=== PATIENT | male | born 1985 | race Caucasian/White ===

== ENCOUNTER 2016-06-28 00:51 | Emergency (ER) | payer MEDICARE ==
[~2016-06-28] VITALS: Ht 180.3 cm; Wt 86.4 kg
[~2016-06-28 00:51] MED LIST: ATARAX50 MG PO; ATIVAN 1MG T1 MG/TAB PO; NO HOME MEDICATIONS; ZITHROMAX 250M250 MG PO; ZYPREXA 5MG5 MG PO
[2016-06-28 00:57] VITALS: TEMP 97.5
[2016-06-28] MEDS ORDERED: ULTRAM 50MG TAB50 MG PO (01:34)
[2016-06-28 02:14] VITALS: BP 158/103; PULSE 88
== END 2016-06-28 02:18 | disposition home or self-care (01) ==
LOC: COL.ER 00:51
DX: M67.432 Ganglion, left wrist (principal)

== ENCOUNTER 2016-07-16 20:58 | Emergency (ER) | payer MEDICARE ==
[~2016-07-16] VITALS: Ht 180.3 cm; Wt 86.4 kg
[~2016-07-16 20:58] MED LIST changes: +ULTRAM 50MG TAB50 MG PO
[2016-07-16 21:00] VITALS: BP 160/100; TEMP 97.8
[2016-07-16] MEDS ORDERED: PREDNISONE20 MG PO (21:15)
[2016-07-16] MEDS ORDERED: ULTRAM 50MG TAB50 MG PO (21:19)
[2016-07-16 21:28] VITALS: PULSE 99
== END 2016-07-16 21:29 | disposition home or self-care (01) ==
LOC: COL.ER 20:58
DX: J45.901 Unspecified asthma with (acute) exacerbation (principal); M67.432 Ganglion, left wrist; Z87.891 Personal history of nicotine dependence
CPT/HCPCS: J7512

== ENCOUNTER 2016-11-02 21:55 | Emergency (ER) | payer MEDICARE, MEDICAID ==
[~2016-11-02] VITALS: Ht 180.3 cm; Wt 81.8 kg
[~2016-11-02 21:55] MED LIST changes: +PREDNISONE20 MG PO
[2016-11-02 21:57] VITALS: TEMP 98
[2016-11-02 23:34] LABS: BASO # 0.1 (0.0-0.2); BASO % 0.8 % (0.0-2.0); EOS # 0.1 (0.0-0.7); EOS % 0.5 % (0-4.0); GRAN # 11.1 (1.4-6.5); GRAN % 77.7 % (42.2-75.2); HEMATOCRIT 48.1 % (42.0-52.0); HEMOGLOBIN 16.6 g/dl (13.5-18.0); LYMPH # 2.1 (1.2-3.4); LYMPH % 15.1 % (20.0-51.0); MEAN CELL VOLUME 93 fl (80.0-100.0); MEAN CORPUSCULAR HEMOGLOBIN 32 pg (27.0-31.0); MEAN CORPUSCULAR HGB CONC 35 g/dl (33.0-37.0); MEAN PLATELET VOLUME 9.1 fl (7.4-10.4); MONO # 0.8 (0.1-0.6); MONO % 5.3 % (1.7-9.3); PLATELET COUNT 384 K/mm3 (130-400); RED BLOOD COUNT 5.15 M/mm3 (4.20-5.60); REDCELL DISTRIBUTION WIDTH-CV 12.6 % (11.5-14.5); WHITE BLOOD COUNT 14.2 K/mm3 (4.8-10.8)
[2016-11-02 23:46] LABS: ADJUSTED CALCIUM 8.2 mg/dL (8.4-10.2); ALANINE AMINOTRANSFERASE 32 U/L (21-72); ALKALINE PHOSPHATASE 83 U/L (50-136); ANION GAP 21 mmol/L (7-16); BILIRUBIN,TOTAL 0.8 mg/dL (0.0-1.0); BLOOD UREA NITROGEN 12 mg/dL (9-20); CHLORIDE 111 mmol/L (98-107); CREATININE, serum 0.94 mg/dL (0.66-1.25); GLUCOSE 128 mg/dL (74-106); POTASSIUM 3.7 mmol/L (3.4-5.0); SODIUM 145 mmol/L (137-145); TOTAL PROTEIN 7.6 gm/dL (6.4-8.2)
[2016-11-02 23:48] LABS: ACETAMINOPHEN < 10 ug/mL (10-30); SALICYLATE < 1.0 mg/dL
[2016-11-02 23:49] LABS: CARBON DIOXIDE 14 mmol/L (22-30)
[2016-11-03 00:31] LABS: PH 6 (5-8); SQUAMOUS EPITHELIAL None Seen /hpf; URINE APPEARANCE Clear; URINE BACTERIA Rare /hpf; URINE BILIRUBIN Negative (NEGATIVE); URINE BLOOD Negative (NEGATIVE); URINE COLOR Yellow; URINE GLUCOSE Negative (NEGATIVE); URINE KETONE Negative (NEGATIVE); URINE RBC 0-2 /hpf; URINE UROBILINOGEN Negative (NEGATIVE); URINE WBC 0-2 /hpf
[2016-11-03 00:32] LABS: THYROXINE (T4)-TOTAL 6.7 ug/dL (5.5-11.0)
[2016-11-03 00:35] LABS: AMPHETAMINE URINE POSITIVE; BARBITURATES URINE NEGATIVE; BENZODIAZEPINES URINE NEGATIVE; BUPRENORPHINE URINE NEGATIVE; METHADONE URINE NEGATIVE; OPIATES URINE NEGATIVE; OXYCODONE URINE NEGATIVE; PHENCYCLIDINE URINE NEGATIVE; PROPOXYPHENE URINE NEGATIVE; THC CANNABINOIDS URINE NEGATIVE
[2016-11-03 05:51] LABS: ANION GAP 8 mmol/L (7-16); BLOOD UREA NITROGEN 10 mg/dL (9-20); CALCIUM 8.1 mg/dL (8.4-10.2); CARBON DIOXIDE 22 mmol/L (22-30); CHLORIDE 110 mmol/L (98-107); CREATININE, serum 0.79 mg/dL (0.66-1.25); GLUCOSE 93 mg/dL (74-106); POTASSIUM 4.3 mmol/L (3.4-5.0); SODIUM 140 mmol/L (137-145)
[2016-11-03 09:00] VITALS: BP 147/97; PULSE 92
== END 2016-11-03 08:39 | disposition home or self-care (01) ==
LOC: COL.ER → EDBD 21:57 → COL.ER 21:57
PROVIDERS: Emergency Medicine
DX: F10.120 Alcohol abuse with intoxication, uncomplicated (principal); Y90.7 Blood alcohol level of 200-239 mg/100 ml; S60.221A Contusion of right hand, initial encounter; W22.8XXA Striking against or struck by other objects, initial encounter; Y92.008 Other place in unspecified non-institutional (private) residence as the place of occurrence of the external cause
CPT/HCPCS: J1630; J2060; J7030

== ENCOUNTER 2017-01-24 20:09 | Emergency (ER) | payer MEDICARE, MEDICAID ==
[~2017-01-24] VITALS: Ht 180.3 cm; Wt 86.4 kg
[2017-01-24 20:10] VITALS: TEMP 98
[2017-01-24] MEDS ORDERED: ULTRAM 50MG TAB50 MG PO (20:33)
[2017-01-24] MEDS ORDERED: PROAIR HFA0.09 MG/AC IH (20:33)
[2017-01-24 21:05] VITALS: BP 155/99; PULSE 101
== END 2017-01-24 21:08 | disposition home or self-care (01) ==
LOC: COL.ER 20:09
DX: J45.901 Unspecified asthma with (acute) exacerbation (principal); K50.90 Crohn's disease, unspecified, without complications; F84.0 Autistic disorder; Z87.891 Personal history of nicotine dependence

== ENCOUNTER 2017-03-13 17:09 | Emergency (ER) | payer MEDICARE, MEDICAID ==
[~2017-03-13] VITALS: Ht 180.3 cm; Wt 86.4 kg
[~2017-03-13 17:09] MED LIST changes: +PROAIR HFA0.09 MG/AC IH
[2017-03-13 17:14] VITALS: BP 161/93; PULSE 114; TEMP 98.8
[2017-03-13] MEDS ORDERED: FLONASEALLERGY NS (17:17)
== END 2017-03-13 17:51 | disposition left against medical advice (07) ==
LOC: COL.ER 17:09
DX: L73.9 Follicular disorder, unspecified (principal); J45.909 Unspecified asthma, uncomplicated; K50.90 Crohn's disease, unspecified, without complications; F41.9 Anxiety disorder, unspecified
CPT/HCPCS: J2710

== ENCOUNTER 2017-06-16 14:59 | Emergency (ER) | payer MEDICARE ==
[~2017-06-16 14:59] MED LIST changes: +FLONASEALLERGY NS
[2017-06-16 15:43] LABS: BASO # 0.1 (0.0-0.2); BASO % 0.6 % (0.0-2.0); EOS # 0.1 (0.0-0.7); EOS % 0.5 % (0-4.0); GRAN # 9.7 (1.4-6.5); GRAN % 76.7 % (42.2-75.2); HEMATOCRIT 44.8 % (42.0-52.0); HEMOGLOBIN 15.7 g/dl (13.5-18.0); LYMPH # 2.2 (1.2-3.4); LYMPH % 17.1 % (20.0-51.0); MEAN CELL VOLUME 91 fl (80.0-100.0); MEAN CORPUSCULAR HEMOGLOBIN 32 pg (27.0-31.0); MEAN CORPUSCULAR HGB CONC 35 g/dl (33.0-37.0); MEAN PLATELET VOLUME 8.9 fl (7.4-10.4); MONO # 0.6 (0.1-0.6); MONO % 4.9 % (1.7-9.3); PLATELET COUNT 353 K/mm3 (130-400); RED BLOOD COUNT 4.91 M/mm3 (4.20-5.60); REDCELL DISTRIBUTION WIDTH-CV 12.1 % (11.5-14.5)
[2017-06-16 15:56] LABS: ALANINE AMINOTRANSFERASE 35 U/L (21-72); ALBUMIN 5.1 gm/dL (3.5-5.0); ALKALINE PHOSPHATASE 93 U/L (50-136); ANION GAP 10 mmol/L (7-16); AST,SGOT 23 U/L (15-37); BILIRUBIN,TOTAL 0.8 mg/dL (0.0-1.0); BLOOD UREA NITROGEN 7 mg/dL (9-20); CARBON DIOXIDE 27 mmol/L (22-30); CHLORIDE 103 mmol/L (98-107); CREATININE, serum 0.74 mg/dL (0.66-1.25); GLUCOSE 106 mg/dL (74-106); POTASSIUM 3.5 mmol/L (3.4-5.0); SODIUM 140 mmol/L (137-145); TOTAL PROTEIN 7.5 gm/dL (6.4-8.2)
[2017-06-16 15:59] LABS: ACETAMINOPHEN < 10 ug/mL (10-30); ALCOHOL(ethanol),MEDICAL < 10 mg/dL; SALICYLATE < 1.0 mg/dL
[2017-06-16 16:19] LABS: COLLECTION METHOD CLEAN CATCH
[2017-06-16 16:24] LABS: PH 6 (5-8); SQUAMOUS EPITHELIAL None Seen /hpf; URINE APPEARANCE Clear; URINE BACTERIA None Seen /hpf; URINE BILIRUBIN Negative (NEGATIVE); URINE BLOOD Negative (NEGATIVE); URINE COLOR Yellow; URINE GLUCOSE Negative (NEGATIVE); URINE KETONE Negative (NEGATIVE); URINE LEUKOCYTE ESTERASE Negative (NEGATIVE); URINE NITRATE Negative (NEGATIVE); URINE PROTEIN(semi-quant) Negative (NEGATIVE); URINE RBC None Seen /hpf; URINE UROBILINOGEN Negative (NEGATIVE)
[2017-06-16 16:36] LABS: TRICYCLIC ANTIDEPRESS URINE NEGATIVE
[2017-06-17 16:30] VITALS: TEMP 97.1
[2017-06-17 20:13] VITALS: BP 127/92; PULSE 86
== END 2017-06-17 20:13 ==
LOC: COL.ER 14:59
PROVIDERS: Emergency Medicine
DX: F23 Brief psychotic disorder (principal)

== ENCOUNTER 2017-07-15 21:50 | Emergency (ER) | payer MEDICARE ==
[~2017-07-15] VITALS: Ht 180.3 cm; Wt 79.1 kg
[2017-07-15] MEDS ORDERED: REQUIP 0.5MG0.5 MG PO (22:20)
[2017-07-15] MEDS ORDERED: CELEXA10 MG PO (22:20)
[2017-07-15] MEDS ORDERED: BENADRYL25 M2 PO (22:22)
[2017-07-15 22:41] LABS: COLLECTION METHOD CLEAN CATCH
[2017-07-15 22:50] LABS: PH 6 (5-8); SQUAMOUS EPITHELIAL None Seen /hpf; URINE APPEARANCE Clear; URINE BACTERIA None Seen /hpf; URINE BILIRUBIN Negative (NEGATIVE); URINE BLOOD Negative (NEGATIVE); URINE COLOR Straw; URINE GLUCOSE Negative (NEGATIVE); URINE KETONE Negative (NEGATIVE); URINE LEUKOCYTE ESTERASE Negative (NEGATIVE); URINE NITRATE Negative (NEGATIVE); URINE PROTEIN(semi-quant) Negative (NEGATIVE); URINE RBC None Seen /hpf; URINE UROBILINOGEN Negative (NEGATIVE)
[2017-07-15 22:55] LABS: BASO # 0.1 (0.0-0.2); BASO % 0.9 % (0.0-2.0); EOS # 0.2 (0.0-0.7); EOS % 1.6 % (0-4.0); GRAN # 9.3 (1.4-6.5); GRAN % 67.8 % (42.2-75.2); LYMPH # 3.1 (1.2-3.4); LYMPH % 22.6 % (20.0-51.0); MEAN CELL VOLUME 89 fl (80.0-100.0); MEAN CORPUSCULAR HEMOGLOBIN 32 pg (27.0-31.0); MEAN CORPUSCULAR HGB CONC 36 g/dl (33.0-37.0); MEAN PLATELET VOLUME 8.8 fl (7.4-10.4); MONO # 0.9 (0.1-0.6); MONO % 6.6 % (1.7-9.3); PLATELET COUNT 334 K/mm3 (130-400); RED BLOOD COUNT 5.06 M/mm3 (4.20-5.60); REDCELL DISTRIBUTION WIDTH-CV 12.4 % (11.5-14.5)
[2017-07-15 22:56] LABS: TRICYCLIC ANTIDEPRESS URINE NEGATIVE
[2017-07-15 23:05] LABS: ALANINE AMINOTRANSFERASE 41 U/L (21-72); ALBUMIN 4.6 gm/dL (3.5-5.0); ALKALINE PHOSPHATASE 78 U/L (50-136); ANION GAP 11 mmol/L (7-16); AST,SGOT 23 U/L (15-37); BILIRUBIN,TOTAL 0.5 mg/dL (0.0-1.0); BLOOD UREA NITROGEN 13 mg/dL (9-20); CALCIUM 9.5 mg/dL (8.4-10.2); CARBON DIOXIDE 23 mmol/L (22-30); CHLORIDE 106 mmol/L (98-107); GLUCOSE 117 mg/dL (74-106); LIPASE 73 U/L (23-300); POTASSIUM 3.5 mmol/L (3.4-5.0); SODIUM 140 mmol/L (137-145); TOTAL PROTEIN 7.1 gm/dL (6.4-8.2)
[2017-07-15 23:07] LABS: ACETAMINOPHEN < 10 ug/mL (10-30); ALCOHOL(ethanol),MEDICAL < 10 mg/dL; SALICYLATE < 1.0 mg/dL
[2017-07-18 06:55] VITALS: TEMP 97.3
[2017-07-18 11:22] VITALS: BP 132/67
[2017-07-18 14:47] VITALS: PULSE 96
== END 2017-07-18 14:59 ==
LOC: COL.ER 21:50
PROVIDERS: Emergency Medicine
DX: F29 Unspecified psychosis not due to a substance or known physiological condition (principal); J45.909 Unspecified asthma, uncomplicated; K50.90 Crohn's disease, unspecified, without complications; F84.0 Autistic disorder; F17.210 Nicotine dependence, cigarettes, uncomplicated; Z98.818 Other dental procedure status; Z98.890 Other specified postprocedural states; Z79.51 Long term (current) use of inhaled steroids
CPT/HCPCS: A4216; J3486